=== PATIENT | female | born 1985 | race Caucasian/White ===

== ENCOUNTER 2016-11-25 13:50 | Emergency (ER) | payer OTHER ==
[~2016-11-25] VITALS: Ht 170.2 cm; Wt 95.5 kg
[2016-11-25] MEDS ORDERED: OXYC10TA12 (14:10)
[2016-11-25] MEDS ORDERED: MIRT15TA3 (14:10)
[2016-11-25] MEDS ORDERED: DULO1CAP3 (14:10)
[2016-11-25] MEDS ORDERED: GABA800T (14:10)
[2016-11-25] MEDS ORDERED: CYCL10TA (14:10)
[2016-11-25] MEDS ORDERED: MAPA325T2 (14:10)
--- NOTE | 2016-11-25 17:12 | REP ---
ABDOMINAL SERIES: Supine and erect views of the abdomen demonstrate no free air. Mildly dilated large and small bowel loops on the right side may represent an ileus. There are phleboliths in the pelvis. An accompanying view of the chest demonstrates mild discoid atelectasis in each lung base. The heart is normal in size and the mediastinal silhouette is unremarkable. IMPRESSION: Mildly dilated bowel loops on the right side of the abdomen may represent a mild ileus. Mild discoid atelectasis in the lung bases. Signed by Merritt Moy MD 11/25/2016 05:27 P
[2016-11-25] MEDS ORDERED: MOVA1TAB2 PO (17:21)
[2016-11-25] MEDS ORDERED: NYST50SS SS (17:29)
[2016-11-25 17:33] VITALS: BP 122/71
== END 2016-11-25 17:34 | disposition home or self-care (01) ==
LOC: M ED 13:50
DX: K59.00 Constipation, unspecified (principal); K56.7 Ileus, unspecified; R10.9 Unspecified abdominal pain; F32.9 Major depressive disorder, single episode, unspecified; F17.200 Nicotine dependence, unspecified, uncomplicated; Z79.899 Other long term (current) drug therapy; Z79.891 Long term (current) use of opiate analgesic